=== PATIENT | male | born 1965 | race Caucasian/White ===

== ENCOUNTER → 2021-05-23 | Outpatient (CLI) | payer MEDICARE, MEDICAID | END | disposition home or self-care (01) | LOC: CFH 15:56 | PROVIDERS: ATTEND Nurse Practitioner Primary Care | DX: M79.89 Other specified soft tissue disorders (principal) ==

== ENCOUNTER 2021-05-26 18:06 | Emergency (ER) | payer MEDICAID, MEDICARE ==
[~2021-05-26] VITALS: Ht 188 cm; Wt 91.3 kg
[2021-05-26] MEDS ORDERED: VITAMIN D2 PO (18:29)
[2021-05-26] MEDS ORDERED: LOSA50TA14 PO (18:29)
[2021-05-26] MEDS ORDERED: CLIN150C15 PO (18:29)
[2021-05-26 20:03] VITALS: BP 134/87
--- NOTE | 2021-05-26 20:05 | NUR ---
PT TO BATHROOM AND BACK TO BED WITH STEADY GAIT. ATTACHED TO MONITORS. VSS. NADN. LAB AT BEDSIDE. PT TO GET US.
--- NOTE | 2021-05-26 20:33 | NUR ---
PT TO US
[2021-05-26 20:37] LABS: BASOPHILS % (AUTO) 0 % (0-1); EOSINOPHILS % (AUTO) 6 % (1-7); LYMPHOCYTES % (AUTO) 28 % (22-44); MEAN CORPUSCULAR HEMOGLOBIN 36.7 pg (27.5-34.5); MEAN CORPUSCULAR HGB CONC 35.2 g/dL (33.2-36.2); MEAN PLATELET VOLUME 7.4 fL (7.4-10.4); MONOCYTES % (AUTO) 8 % (2-9); NEUTROPHILS % (AUTO) 58 % (42-75); PLATELET COUNT 224 x10^3/uL (130-400); RED BLOOD COUNT 4.59 x10^6/uL (4.38-5.82); RED CELL DISTRIBUTION WIDTH 14.7 % (9.4-14.8)
[2021-05-26 20:46] LABS: ALBUMIN 3.5 g/dL (3.4-5.0); ANION GAP 2 mmol/L (5-15); CALCIUM 8.5 mg/dL (8.5-10.1); CHLORIDE 110 mmol/L (98-107); CREATININE 0.91 mg/dL (0.7-1.3)
[2021-05-26] MEDS ORDERED: CEPHALEXIN 500 MG CAPSULE PO STA (21:49)
[2021-05-26] MEDS ORDERED: CEPHALEXIN 500 MG CAPSULE ONE (21:54)
[2021-05-26] MEDS ORDERED: SULFAMETH./TRIMETHOPRIM DS 800MG/160MG TABLET ONE (21:54)
--- NOTE | 2021-05-26 21:57 | NUR ---
Patient given discharge instructions and they have confirmed that they understand the instructions. Patient ambulatory with steady gait. NAD, all questions answered appropriately, denies additional needs at this time. No personal belongings left in room after discharge.
[2021-05-26] MEDS ORDERED: SULFAMETH./TRIMETHOPRIM DS 800MG/160MG TABLET PO ONE (22:30)
== END 2021-05-26 21:58 | disposition home or self-care (01) ==
LOC: ED 21:48
DX: L03.116 Cellulitis of left lower limb (principal); R60.0 Localized edema; F17.210 Nicotine dependence, cigarettes, uncomplicated; I10 Essential (primary) hypertension
CPT/HCPCS: 36415; 80048; 82040; 85025; 99284